=== PATIENT | male | born 1955 | race Caucasian/White ===

== ENCOUNTER → 2022-12-11 10:23 | Outpatient (CLI) | payer OTHER, SELFPAY ==
--- NOTE | 2022-12-11 10:25 | DI.CT.S_ITS ---
PROCEDURE: CT CHEST WO CON INDICATIONS: cough and 30+ pack year smoking TECHNIQUE: Noncontrast 5 mm thick sections acquired from the pulmonary apices to the posterior costophrenic angles. 1 mm lung window, 5 mm thick coronal and sagittal and 7 mm axial MIP reformats were then acquired. For radiation dose reduction, the following was used: automated exposure control, adjustment of mA and/or kV according to patient size. COMPARISON: None. FINDINGS: Image quality: Excellent. Lungs and pleura: Moderate centrilobular emphysema. No effusions. Mild bronchial thickening. No mucous impaction. A few calcified granuloma. Mediastinum: Heart size is normal. No pericardial effusion. No mediastinal adenopathy by size criteria. Thoracic aorta and central pulmonary arteries are normal in size. Esophagus is normal in caliber. No hiatal hernia. Moderate to marked coronary artery calcifications for age. Bones and chest wall: No suspicious bony lesions. No vertebral body compression fractures. No axillary or supraclavicular adenopathy by size criteria. Thyroid gland contains a coarse calcification . Abdomen: Visualized upper abdominal solid organs and bowel loops appear normal in the absence of contrast. IMPRESSION: Mild bronchial thickening, suggestive of infectious or inflammatory bronchitis. Moderate to marked coronary calcifications for age. Dictated by: Greg Galeana M.D. on 12/11/2022 at 14:11 Approved by: Greg Galeana M.D. on 12/11/2022 at 14:13
--- NOTE | 2022-12-11 10:25 | DI.ECHO.S_ITS ---
[place] +---------+ [facility] +---------+ : : [address] : : : : [id number] : : : : Phone: [phone] Echocardiogram Report + + :Name: GLORIA GOTTLIEB Study Date: 12/11/2022 Height: 66 in : :[facility] ReadingLocation: Weight: 183 lb : : Gender: Male BSA: 1.9 m2 : :: 1955 Age: 67 yrs BP: 172/77 mmHg: :Reason For Study: New Systolic Murmur : :Ordering Physician: DELTA, : :LAURA Performed By: Laura Black : :Referring: LAURA SORENSON : + + Interpretation Summary The ejection fraction is estimated to be 60-65%. Diastolic parameters suggest probable normal left ventricular diastolic function and normal filling pressures. The right ventricle is normal in size and function. There is moderate aortic stenosis. There is moderate aortic regurgitation. Pulmonary artery pressures cannot be estimated because of the lack of a measurable TR jet velocity. Procedure: A two-dimensional transthoracic echocardiogram with color flow and Doppler was performed. The study quality was technically adequate. There is no prior echocardiogram noted for this patient. The patient was in normal sinus rhythm during the exam. Left Ventricle: The left ventricle is normal in size. The ejection fraction is estimated to be 60-65%. Diastolic parameters suggest probable normal left ventricular diastolic function and normal filling pressures. Right Ventricle: The right ventricle is normal in size and function. Atria: The left atrial size is normal. Right atrial size is normal. There is no Doppler evidence for an interatrial shunt. Mitral Valve: The mitral valve leaflets appear borderline thickened, but open well. There is no mitral valve stenosis. There is trace mitral regurgitation. Aortic Valve: The aortic valve is not well visualized. The aortic valve is moderately calcified. There is moderate aortic stenosis. The peak aortic velocity is 3.22 m/sec. The aortic valve mean gradient is 20 mmHg. The dimensionless index is 0.48. There is moderate aortic regurgitation. Tricuspid Valve: The tricuspid valve is normal. There is no tricuspid stenosis. There is trace tricuspid regurgitation. Pulmonary artery pressures cannot be estimated because of the lack of a measurable TR jet velocity. Pulmonic Valve: The pulmonic valve leaflets are thin and pliable; valve motion is normal. There is no pulmonic valvular stenosis. There is no pulmonic valvular regurgitation. Great Vessels: The aortic root is normal size. The ascending aorta is normal in size. The pulmonary artery is normal size. The IVC is of normal diameter and collapses greater than 50% with a sniff. This suggests a low right atrial pressure of 3 mm Hg. Pericardium/ Pleura There is no pericardial effusion. There is no pleural effusion. MMode/2D Measurements & Calculations LVIDd: 3.2 cm LVOT diam: 2.1 cm LVIDs: 2.7 cm Ao root diam: 2.9 cm FS: 15.6 % asc Aorta Diam: 3.2 cm IVSd: 1.4 cm LVPWd: 1.2 cm LV morales. diameter/BSA (cm/m^2): 1.7 LV sys. diameter/BSA (cm/m^2): 1.4 LA A2 area: 15.8 cm2 RA long axis: 4.7 cm LA A4 area: 16.5 cm2 RA area: 13.9 cm2 LA length (vol): 5.0 cm RA vol: 35.2 ml LA vol: 44.7 ml RA : 18.3 ml/m2 LA vol index: 23.2 ml/m2 RVD1 (basal): 3.6 cm LVLs ap4: 6.4 cm LVLd ap2: 8.2 cm TAPSE_phl: 2.9 cm LVLs ap2: 6.6 cm Doppler Measurements & Calculations Ao V2 max: 311.7 cm/sec LVOT Max Randolph: 146.0 cm/sec Ao V2 mean: 204.3 cm/sec LV V1 max P.5 mmHg Ao max P.0 mmHg LV V1 VTI: 30.1 cm Ao mean P.3 mmHg JOSE ENRIQUE(I,D): 1.6 cm2 Ao V2 VTI: 63.4 cm JOSE ENRIQUE(V,D): 1.6 cm2 sev ratio: 0.47 JOSE ENRIQUE indexed to BSA (cm^2/m^2): 0.85 MV E max randolph: 90.7 cm/sec PA V2 max: 148.0 cm/sec MV A max randolph: 116.0 cm/sec PA V2 mean: 97.0 cm/sec MV E/A: 0.78 PA mean P.0 mmHg Med Peak E' Randolph: 6.1 cm/sec PA pr(Accel): 43.5 mmHg E/E' med: 14.9 Lat Peak E' Randolph: 7.5 cm/sec E/E' lat: 12.0 E/e' average: 13.5 MV dec time: 0.29 sec SV(LVOT): 104.1 ml AV P1/2t-pr_phl: 428.9 msec AV VR_phl: 0.47 JOSE ENRIQUE(VTI)/BSA_phl: 0.85 MV P1/2t-pr_phl: 86.0 msec Reading Physician:12:42 PM
[2022-12-11 12:19] LABS: Add Manual Diff / Slide Review NO; Basophils Absolute Auto 100 /uL (0-100); Basophils Percent Auto 0.9 % (0-2); Eosinophils Absolute Auto 300 /uL (0-450); Eosinophils Percent Auto 3.5 % (2-4); Hematocrit 41.8 % (41-53); Hemoglobin 15.1 g/dL (13.5-17.5); Lymphocytes Absolute Auto 3200 /uL (1100-4500); Lymphocytes Percent Auto 37.7 % (25-40); Mean Corpuscular HGB Conc 36.2 % (30-36); Mean Corpuscular Hemoglobin 32.8 PG (26-34); Mean Corpuscular Volume 90.7 fL (80-100); Monocytes Absolute Auto 800 /uL (0-900); Monocytes Percent Auto 9.2 % (3-14); Neutrophils Absolute Auto 4200 /uL (1500-7000); Neutrophils Percent Auto 48.7 % (50-75); Platelet Count 229 X10^3/uL (150-400); Red Blood Cell Count 4.61 X10^6/uL (4.5-5.9); Red Cell Distribution Width 13.5 % (11.6-14.8); White Blood Cell Count 8.6 X10^3/uL (4.5-11.0)
[2022-12-11 12:51] LABS: Alanine Aminotransferase 55 IU/L (<50); Albumin 4.4 g/dL (3.5-5.0); Albumin Globulin Ratio 1.1 (1.0-2.8); Alkaline Phosphatase 104 U/L (38-126); Aspartate Aminotransferase 53 IU/L (17-59); BUN Creatinine Ratio 9.1 (6-22); Bilirubin Total 1.3 mg/dL (0.2-1.3); Blood Urea Nitrogen 9 mg/dL (9-20); Calcium 9.3 mg/dL (8.4-10.2); Carbon Dioxide 23 mmol/L (22-32); Chloride 100 mmol/L (98-107); Cholesterol 165 mg/dL (140-199); Estimated Glomerular Filt Rate > 60 mL/min (>60); Globulin 4.1 g/dL (1.7-4.1); Glucose 136 mg/dL (80-110); HDL Cholesterol 35 mg/dL (40-60); HEMOLYSIS 21 (0-50); LDL Cholesterol Calculated 68 mg/dL (<100); Potassium 3.8 mmol/L (3.4-5.1); Sodium 135 mmol/L (137-145); Total Protein 8.5 g/dL (6.3-8.2); Triglycerides 308 mg/dL (35-150)
[2022-12-11 13:02] LABS: Prostate Specific Antigen Scrn 0.116 ng/mL (0.1-4.0)
[2022-12-11 13:08] LABS: Creatinine Urine Random 43.8 mg/dL
[2022-12-11 13:15] LABS: Microalbumi Creatinin Ratio Ur 61.6 ug/mg CR (<30); Microalbumin Urine Random 2.7 mg/dL (0-1.6)
[2022-12-11 13:16] LABS: TSH w/ Reflex to FT4 3.06 uIU/mL (0.47-4.68)
[2022-12-12 02:36] LABS: Labcorp Hemoglobin (Hb) A1c 6.6 % (4.8-5.6)
== END ==
PROVIDERS: PCP Family Medicine; Referring Provider Family Medicine; Visit Provider Family Medicine
DX: I35.2 Nonrheumatic aortic (valve) stenosis with insufficiency (principal); I25.10 Atherosclerotic heart disease of native coronary artery without angina pectoris; R01.1 Cardiac murmur, unspecified; I10 Essential (primary) hypertension; Z12.5 Encounter for screening for malignant neoplasm of prostate; E11.9 Type 2 diabetes mellitus without complications; E78.5 Hyperlipidemia, unspecified; G62.9 Polyneuropathy, unspecified; F17.200 Nicotine dependence, unspecified, uncomplicated; Z79.4 Long term (current) use of insulin
CPT/HCPCS: 36415; 71250; 80053; 80061; 82043; 82570; 83036; 84443; 85025; 93306; G0103

== ENCOUNTER → 2023-03-16 08:39 | Outpatient (CLI) | payer OTHER, SELFPAY ==
[2023-03-16 09:17] LABS: Add Manual Diff / Slide Review NO; Basophils Absolute Auto 100 /uL (0-100); Basophils Percent Auto 0.9 % (0-2); Eosinophils Absolute Auto 300 /uL (0-450); Eosinophils Percent Auto 3.4 % (2-4); Hematocrit 41.1 % (41-53); Hemoglobin 14.6 g/dL (13.5-17.5); Lymphocytes Absolute Auto 3400 /uL (1100-4500); Lymphocytes Percent Auto 40.4 % (25-40); Mean Corpuscular HGB Conc 35.6 % (30-36); Mean Corpuscular Hemoglobin 32.6 PG (26-34); Mean Corpuscular Volume 91.6 fL (80-100); Monocytes Absolute Auto 700 /uL (0-900); Monocytes Percent Auto 8.1 % (3-14); Neutrophils Absolute Auto 4000 /uL (1500-7000); Neutrophils Percent Auto 47.2 % (50-75); Platelet Count 217 X10^3/uL (150-400); Red Blood Cell Count 4.49 X10^6/uL (4.5-5.9); Red Cell Distribution Width 13.4 % (11.6-14.8); White Blood Cell Count 8.4 X10^3/uL (4.5-11.0)
[2023-03-16 09:35] LABS: Alanine Aminotransferase 69 IU/L (<50); Albumin 4.4 g/dL (3.5-5.0); Albumin Globulin Ratio 1.4 (1.0-2.8); Alkaline Phosphatase 75 U/L (38-126); Aspartate Aminotransferase 50 IU/L (17-59); BUN Creatinine Ratio 17.4 (6-22); Bilirubin Total 1.8 mg/dL (0.2-1.3); Blood Urea Nitrogen 21 mg/dL (9-20); Calcium 10.1 mg/dL (8.4-10.2); Carbon Dioxide 30 mmol/L (22-32); Chloride 100 mmol/L (98-107); Estimated Glomerular Filt Rate > 60 mL/min (>60); Globulin 3.2 g/dL (1.7-4.1); Glucose 324 mg/dL (80-110); HEMOLYSIS < 15 (0-50); Potassium 4.7 mmol/L (3.4-5.1); Sodium 137 mmol/L (137-145); Total Protein 7.6 g/dL (6.3-8.2)
[2023-03-16 09:39] LABS: Appearance Urine UA CLEAR; Bilirubin Urine UA NEGATIVE (NEGATIVE); Color Urine UA YELLOW; Glucose Urine UA 2+ g/dL (Negative); Ketones Urine UA NEGATIVE (NEGATIVE); Leukocyte Esterase Urine UA NEGATIVE (NEGATIVE); Nitrite Urine UA NEGATIVE (Negative); Occult Blood Urine UA NEGATIVE (Negative); Protein Urine UA NEGATIVE (Negative); Specific Gravity Urine UA 1.025 (1.000-1.035); Urobilinogen Urine UA 0.2 E.U./dL (0.2); pH Urine UA 5.5 (4.5-8.0)
[2023-03-16 10:09] LABS: Bacteria Urine None Seen; Culture Indicated Urine Cult Not Indicated; RBC Urine None Seen (0-5/HPF); Squamous Epithelial Cell Urine None Seen (0-5/HPF); WBC Urine None Seen (0-5/HPF)
[2023-03-16 16:31] LABS: Creatinine Urine Random 154.8 mg/dL; Protein (Total) Urine Random 12 mg/dL (0-12); Protein Creatinine Ratio Urine 0.07 GRAM/24H
[2023-03-17 15:47] LABS: Absolute CD 4 Helper 295 /uL (359-1519); Basophils (Absolute) 0.1 x10E3/uL (0.0-0.2); Eosinophils 3 % (Not Estab.); Eosinophils (Absolute) 0.3 x10E3/uL (0.0-0.4); Hemacrit 42.4 % (37.5-51.0); Hemoglobin 14.5 g/dL (13.0-17.7); Immature Granulocytes 1 % (Not Estab.); Immature Granulocytes (Abs) 0.1 x10E3/uL (0.0-0.1); Lymphocytes 41 % (Not Estab.); Lymphocytes (Absolute) 3.6 x10E3/uL (0.7-3.1); MCHC 32.1 pg (26.6-33.0); MCHC 34.2 g/dL (31.5-35.7); MCV 94 fL (79-97); Monocytes 9 % (Not Estab.); Monocytes (Absolute) 0.8 x10E3/uL (0.1-0.9); Neutrophils 45 % (Not Estab.); Percent CD 4 Pos Lymph 8.2 % (30.8-58.5); Platelets 220 x10E3/uL (150-450); Red Blood Cells 4.52 x10E6/uL (4.14-5.80); White Blood Cells 8.8 x10E3/uL (3.4-10.8)
[2023-03-23 01:06] LABS: HIV-1 RNA by PCR <40 copies/mL (.)
== END ==
PROVIDERS: PCP Family Medicine; Referring Provider Family Medicine Addiction Medicine; Visit Provider Family Medicine Addiction Medicine
DX: E11.29 Type 2 diabetes mellitus with other diabetic kidney complication (principal); B20 Human immunodeficiency virus [HIV] disease; R80.9 Proteinuria, unspecified; I10 Essential (primary) hypertension; E11.9 Type 2 diabetes mellitus without complications; Z79.4 Long term (current) use of insulin
CPT/HCPCS: 36415; 80053; 81001; 82570; 83036; 84156; 85025; 86361; 87536

== ENCOUNTER → 2023-05-05 09:20 | Outpatient (CLI) | payer OTHER, SELFPAY ==
--- NOTE | 2023-05-05 | DI.US.S_ITS ---
PROCEDURE: US THYROID INDICATIONS: Family history of other endocrine, nutritional and metabolic TECHNIQUE: Real-time scanning was performed of the thyroid gland, with image documentation. COMPARISON: None. FINDINGS: Right: Thyroid lobe measures 3.8 x 1.5 x 1.8 cm, and is homogeneous in echotexture. Left: Thyroid lobe measures 4.4 x 2.5 x 1.6 cm, and is homogenous in echotexture. Isthmus: 3.2 cm thick. Nodule number: 1 Location: Right mid Size: 1.0 x 1.2 x 0.8 cm. Composition: Solid Echogenicity: Isoechoic Shape: wider than tall. Margins: Smooth Echogenic foci: Non Total points: 3 ACR TI-RADS category: 3 Nodule number: 2 Location: Right mid Size: 1.0 x 0.7 x 0.7 cm. Composition: Solid Echogenicity: Hypoechoic Shape: wider than tall. Margins: Smooth Echogenic foci: None Total points: 4 ACR TI-RADS category: 4 Nodule number: 3 Location: Left mid Size: 0.7 x 0.8 x 0.5 cm. Composition: Cystic Echogenicity: Hypoechoic Shape: wider than tall. Margins: Smooth Echogenic foci: None Total points: 2 ACR TI-RADS category: 2 IMPRESSION: 1. There are small thyroid nodules. Nodule 2 is moderately suspicious and nodule 1 is mildly suspicious. Please see enclosed follow-up recommendation. ACR TI-RADS definitions and recommendations: TI-RADS 1 (benign): 0 points. FNA not needed. TI-RADS 2 (not suspicious): 2 points. FNA not needed. TI-RADS 3 (mildly suspicious): 3 points. * FNA if 2.5 cm or larger, follow up if 1.5 cm or larger (at 1, 3, and 5 years). TI-RADS 4 (moderately suspicious): 4-6 points. * FNA if 1.5 cm or larger, follow up if 1 cm or larger (at 1, 2, 3, and 5 years). TI-RADS 5 (highly suspicious): 7 points or more. * FNA if 1 cm or larger, follow up if 0.5 cm or larger (every year for 5 years). Dictated by: Santos Chacon M.D. on 05/05/2023 at 17:11 Approved by: Santos Chacon M.D. on 05/05/2023 at 18:09
== END ==
PROVIDERS: PCP Family Medicine; Referring Provider Family Medicine; Visit Provider Family Medicine
DX: E04.2 Nontoxic multinodular goiter (principal); Z83.49 Family history of other endocrine, nutritional and metabolic diseases; Z80.8 Family history of malignant neoplasm of other organs or systems
CPT/HCPCS: 76536

== ENCOUNTER → 2023-06-22 08:26 | Outpatient (CLI) | payer OTHER, SELFPAY ==
[2023-06-22 09:13] LABS: Hemoglobin A1C% w Est Avg Glu 10.1 % (4.0-6.0)
[2023-06-22 09:30] LABS: Alanine Aminotransferase 45 IU/L (<50); Albumin Globulin Ratio 1.3 (1.0-2.8); Alkaline Phosphatase 78 U/L (38-126); Aspartate Aminotransferase 36 IU/L (17-59); BUN Creatinine Ratio 8.9 (6-22); Bilirubin Total 1.4 mg/dL (0.2-1.3); Blood Urea Nitrogen 11 mg/dL (9-20); Calcium 9.5 mg/dL (8.4-10.2); Carbon Dioxide 27 mmol/L (22-32); Chloride 103 mmol/L (98-107); Estimated Glomerular Filt Rate > 60 mL/min (>60); Globulin 3.1 g/dL (1.7-4.1); Glucose 252 mg/dL (80-110); HEMOLYSIS < 15 (0-50); Potassium 4.2 mmol/L (3.4-5.1); Sodium 138 mmol/L (137-145); Total Protein 7.1 g/dL (6.3-8.2)
== END ==
LOC: LAB 08:28
PROVIDERS: PCP Family Medicine; Referring Provider Family Medicine; Visit Provider Family Medicine
DX: E11.9 Type 2 diabetes mellitus without complications (principal); E78.5 Hyperlipidemia, unspecified; Z79.4 Long term (current) use of insulin
CPT/HCPCS: 36415; 80053; 83036

== ENCOUNTER → 2023-09-16 10:31 | Outpatient (CLI) | payer OTHER, SELFPAY ==
[2023-09-16 11:49] LABS: Add Manual Diff / Slide Review NO; Basophils Absolute Auto 100 /uL (0-100); Basophils Percent Auto 0.6 % (0-2); Eosinophils Absolute Auto 200 /uL (0-450); Eosinophils Percent Auto 2.3 % (2-4); Hematocrit 39.1 % (41-53); Hemoglobin 13.7 g/dL (13.5-17.5); Lymphocytes Absolute Auto 3300 /uL (1100-4500); Lymphocytes Percent Auto 36.4 % (25-40); Mean Corpuscular HGB Conc 35.1 % (30-36); Mean Corpuscular Hemoglobin 31.8 PG (26-34); Mean Corpuscular Volume 90.7 fL (80-100); Monocytes Absolute Auto 800 /uL (0-900); Monocytes Percent Auto 8.9 % (3-14); Neutrophils Absolute Auto 4700 /uL (1500-7000); Neutrophils Percent Auto 51.8 % (50-75); Platelet Count 243 X10^3/uL (150-400); Red Blood Cell Count 4.31 X10^6/uL (4.5-5.9); Red Cell Distribution Width 14.1 % (11.6-14.8)
[2023-09-16 11:55] LABS: Appearance Urine UA CLEAR; Bilirubin Urine UA NEGATIVE (NEGATIVE); Color Urine UA YELLOW; Glucose Urine UA NEGATIVE (Negative); Ketones Urine UA NEGATIVE (NEGATIVE); Leukocyte Esterase Urine UA NEGATIVE (NEGATIVE); Nitrite Urine UA NEGATIVE (Negative); Occult Blood Urine UA NEGATIVE (Negative); Protein Urine UA NEGATIVE (Negative); Specific Gravity Urine UA 1.015 (1.000-1.035)
[2023-09-16 12:01] LABS: Hemoglobin A1C% w Est Avg Glu 6.1 % (4.0-6.0); Urine Volume 10mL (spun)
[2023-09-16 12:02] LABS: Bacteria Urine None Seen; Culture Indicated Urine Cult Not Indicated; RBC Urine None Seen (0-5/HPF); Squamous Epithelial Cell Urine None Seen (0-5/HPF); WBC Urine None Seen (0-5/HPF)
[2023-09-16 12:14] LABS: Alanine Aminotransferase 20 IU/L (<50); Albumin 4.6 g/dL (3.5-5.0); Albumin Globulin Ratio 1.6 (1.0-2.8); Alkaline Phosphatase 62 U/L (38-126); Aspartate Aminotransferase 25 IU/L (17-59); BUN Creatinine Ratio 13.2 (6-22); Bilirubin Total 1.7 mg/dL (0.2-1.3); Blood Urea Nitrogen 16 mg/dL (9-20); Calcium 9.6 mg/dL (8.4-10.2); Carbon Dioxide 28 mmol/L (22-32); Chloride 102 mmol/L (98-107); Cholesterol 124 mg/dL (140-199); Estimated Glomerular Filt Rate > 60 mL/min (>60); Globulin 2.9 g/dL (1.7-4.1); Glucose 97 mg/dL (80-110); HDL Cholesterol 41 mg/dL (40-60); HEMOLYSIS < 15 (0-50); LDL Cholesterol Calculated 55 mg/dL (<100); Sodium 137 mmol/L (137-145); Total Protein 7.5 g/dL (6.3-8.2); Triglycerides 139 mg/dL (35-150)
[2023-09-16 12:15] LABS: Potassium 4.3 mmol/L (3.4-5.1)
[2023-09-16 12:24] LABS: Vitamin D 25 Hydroxy (D3) 25.4 ng/mL (30.0-100.0)
[2023-09-16 12:25] LABS: Microalbumi Creatinin Ratio Ur 34.6 ug/mg CR (<30); Microalbumin Urine Random 2.6 mg/dL (0-1.6)
[2023-09-16 12:59] LABS: Vitamin B12 399 pg/mL (239-931)
[2023-09-19 00:01] LABS: Treponema pallidum Antibodies Non Reactive (Non Reactive)
[2023-09-22 16:57] LABS: HIV-1 RNA by PCR <20 copies/mL (.)
== END ==
PROVIDERS: PCP Family Medicine; Referring Provider Family Medicine Addiction Medicine; Visit Provider Family Medicine Addiction Medicine
DX: E11.29 Type 2 diabetes mellitus with other diabetic kidney complication (principal); B20 Human immunodeficiency virus [HIV] disease; M85.80 Other specified disorders of bone density and structure, unspecified site; E11.9 Type 2 diabetes mellitus without complications; Z79.4 Long term (current) use of insulin; I10 Essential (primary) hypertension; I35.1 Nonrheumatic aortic (valve) insufficiency; I35.0 Nonrheumatic aortic (valve) stenosis; E78.5 Hyperlipidemia, unspecified
CPT/HCPCS: 36415; 80053; 80061; 81001; 82043; 82306; 82570; 82607; 83036; 85025; 86360; 86780; 87536

== ENCOUNTER → 2023-09-22 09:43 | Outpatient (CLI) | payer OTHER, SELFPAY ==
--- NOTE | 2023-09-22 09:44 | DI.RAD.S_ITS ---
PROCEDURE: XR WRIST RT MIN 3V INDICATIONS: FOOSH injury a few years ago with continued wrist pain TECHNIQUE: 4 views of the wrist were acquired. COMPARISON: None. FINDINGS: Bones: No definitive fractures or dislocations. There is a small ossicle in the dorsal aspect of the wrist. No suspicious bony lesions. Degenerative joint disease, most pronounced and severe at the triscaphe joint. Soft tissues: No suspicious soft tissue calcifications. IMPRESSION: 1. No definitive acute bony abnormality. A small ossicle in the dorsal aspect of the wrist. Indeterminate. If clinical symptoms persist or clinical suspicion for pathology is high, advanced imaging such as CT or MRI is suggested for further evaluation. 2. Severe degenerative joint disease. Dictated by: Santos Chacon M.D. on 09/22/2023 at 10:21 Approved by: Santos Chacon M.D. on 09/22/2023 at 10:26
== END ==
PROVIDERS: PCP Family Medicine; Referring Provider Family Medicine; Visit Provider Family Medicine
DX: M19.031 Primary osteoarthritis, right wrist (principal); M25.531 Pain in right wrist
CPT/HCPCS: 73110

== ENCOUNTER → 2023-11-10 12:34 | Outpatient (CLI) | payer OTHER, SELFPAY ==
[2023-11-10 14:00] LABS: Alanine Aminotransferase 24 IU/L (<50); Albumin 4.6 g/dL (3.5-5.0); Albumin Globulin Ratio 1.4 (1.0-2.8); Alkaline Phosphatase 76 U/L (38-126); Aspartate Aminotransferase 32 IU/L (17-59); Bilirubin Total 1.6 mg/dL (0.2-1.3); Blood Urea Nitrogen 14 mg/dL (9-20); Calcium 9.5 mg/dL (8.4-10.2); Carbon Dioxide 21 mmol/L (22-32); Chloride 105 mmol/L (98-107); Estimated Glomerular Filt Rate > 60 mL/min (>60); Globulin 3.4 g/dL (1.7-4.1); Glucose 69 mg/dL (80-110); HEMOLYSIS < 15 (0-50); Potassium 4.5 mmol/L (3.4-5.1); Sodium 137 mmol/L (137-145)
[2023-11-10 14:28] LABS: Prostate Specific Antigen Scrn 0.243 ng/mL (0.1-4.0)
== END ==
PROVIDERS: PCP Family Medicine; Referring Provider Family Medicine; Visit Provider Family Medicine
DX: Z12.5 Encounter for screening for malignant neoplasm of prostate (principal); E11.9 Type 2 diabetes mellitus without complications; E78.2 Mixed hyperlipidemia; I10 Essential (primary) hypertension; Z79.4 Long term (current) use of insulin
CPT/HCPCS: 36415; 80053; 83036; G0103

== ENCOUNTER → 2023-12-07 07:22 | Outpatient (CLI) | payer OTHER, SELFPAY ==
--- NOTE | 2023-12-07 07:23 | DI.NM.S_ITS ---
PROCEDURE: NM JAKE PERF SPECT R&S PHARM Rest and pharmacological stress myocardial perfusion SPECT with gated imaging and ejection fraction RADIOPHARMACEUTICAL: 12.9 mCi Tc-99m tetrafosmin IV at rest and 26.6 mCi Tc-99m tetrafosmin IV at peak effect of pharmacological stress. Dpi-ovk-ownizyho was performed. INDICATIONS: CAD TECHNIQUE: Radiopharmaceutical was injected at peak stress test, and also at rest. SPECT images were obtained. SPECT myocardial perfusion images were displayed in short axis, horizontal long axis, and vertical long axis views. Gated images were reviewed using [employer] software. COMPARISON: None. CARDIAC STRESS: A pharmacologic stress test was performed under the supervision of an attending staff, using an infusion of regadenoson 0.4 mg IV. Hemodynamic data: There is normal blood pressure and heart rate response to pharmacologic stress. Symptoms: The patient experienced chest pressure throughout the test. Aminophylline: None required. EKG: No diagnostic changes of ischemia; no ectopy. FINDINGS: Raw data: There is good myocardial uptake of radiotracer. No significant motion artifacts. Oadj-zs-kvctp ratio is 0.39 (normal is less than 0.38 for tetrafosmin tracer). Left ventricle function: Gated images demonstrate normal left ventricular wall thickening. No segmental wall motion abnormalities. No transient ischemic dilation; TID is 1.04 (normal less than 1.3). Left ventricle resting end diastolic volume is 100 mL. Left ventricle stress ejection fraction is 75%; normal range is above 45%. Myocardial perfusion: There is a medium sized, mild intensity fixed inferior wall defect that resolves in prone imaging. No reversible perfusion defects. IMPRESSION: Low risk study. No evidence of pharmacologic induced ischemia. Normal LV size and function. Dictated by: Analisa Webber D.O. on 12/07/2023 at 16:12 Approved by: Analisa Webber D.O. on 12/07/2023 at 16:14
== END ==
PROVIDERS: PCP Family Medicine; Referring Provider Internal Medicine Cardiovascular Disease; Visit Provider Internal Medicine Cardiovascular Disease
DX: I25.10 Atherosclerotic heart disease of native coronary artery without angina pectoris (principal)
CPT/HCPCS: 78452; 93017; A9502; J2785

== ENCOUNTER → 2023-12-09 07:33 | Outpatient (CLI) | payer OTHER, SELFPAY ==
--- NOTE | 2023-12-09 07:34 | DI.CT.S_ITS ---
PROCEDURE: CT LUNG LOW DOSE SCREENING INDICATIONS: lung cancer screening TECHNIQUE: Noncontrast 2.0-2.5 mm thick sections acquired from the pulmonary apices to the posterior costophrenic angles. 7 mm thick axial MIP, and 5 mm coronal and sagittal reformats were then acquired. For radiation dose reduction, the following was used: automated exposure control, adjustment of mA and/or kV according to patient size. COMPARISON: None. FINDINGS: Image quality: Diagnostic. Lower Neck: No enlarged lymph nodes. Thyroid: 3 mm calcification left lobe of the thyroid. Axillae: No enlarged lymph nodes. Chest Wall: Unremarkable. Bones: There is fusion, likely congenital, at the T9-10 vertebrae anteriorly. Schmorl node seen along the inferior endplate of T11. Mild osteophyte formation. Lungs and Pleura: Moderate centrilobular emphysema present. There is appears stable compared to prior study. No pneumothorax or pleural effusions. No consolidation or suspicious nodules. Heart: Heart size is normal. No pericardial effusion. There is calcification of the coronary arteries. Calcifications seen in the annulus of the aortic valve. Thoracic Vessels: The aorta and pulmonary arteries demonstrate normal size. Mediastinum and Lianna: No enlarged lymph nodes. Esophagus: No wall thickening. No hiatal hernia. Upper Abdomen: Visualized upper abdomen solid organs and bowel loops appear normal. IMPRESSION: No suspicious nodules. COPD, moderate centrilobular emphysema. Coronary artery calcifications. LUNG-RADS 1; continue annual screening. Dictated by: Cheo Lewis M.D. on 12/09/2023 at 11:39 Approved by: Cheo Lewis M.D. on 12/09/2023 at 11:53
== END ==
PROVIDERS: PCP Family Medicine; Referring Provider Family Medicine; Visit Provider Family Medicine
DX: Z87.891 Personal history of nicotine dependence (principal); Z12.2 Encounter for screening for malignant neoplasm of respiratory organs; J43.2 Centrilobular emphysema; I25.10 Atherosclerotic heart disease of native coronary artery without angina pectoris
CPT/HCPCS: 71271

== ENCOUNTER → 2023-12-24 08:45 | Outpatient (CLI) | payer OTHER, SELFPAY ==
[2023-12-24 10:07] LABS: Cholesterol 108 mg/dL (140-199); HDL Cholesterol 38 mg/dL (40-60); LDL Cholesterol Calculated 43 mg/dL (<100); Triglycerides 133 mg/dL (35-150)
== END ==
PROVIDERS: PCP Family Medicine; Referring Provider Nurse Practitioner Acute Care; Visit Provider Nurse Practitioner Acute Care
DX: E78.5 Hyperlipidemia, unspecified (principal)
CPT/HCPCS: 36415; 80061

== ENCOUNTER → 2024-01-05 08:01 | Outpatient (CLI) | payer OTHER, SELFPAY ==
--- NOTE | 2024-01-05 | DI.US.S_ITS ---
PROCEDURE: US ABD AORTA ANEURYSM SCREEN INDICATIONS: Personal history of nicotine dependence TECHNIQUE: Real-time scanning was performed of the aorta and proximal common iliac arteries, with image documentation. COMPARISON: None. FINDINGS: Aorta: Abdominal aorta is normal in caliber throughout its length. Iliacs: Proximal common iliac arteries are normal in caliber. IMPRESSION: No evidence of AAA Dictated by: Marcelino Hurtado M.D. on 01/05/2024 at 12:35 Approved by: Marcelino Hurtado M.D. on 01/05/2024 at 12:36
== END ==
LOC: US 08:01
PROVIDERS: PCP Family Medicine; Referring Provider Nurse Practitioner Acute Care; Visit Provider Nurse Practitioner Acute Care
DX: Z87.891 Personal history of nicotine dependence (principal); Z13.6 Encounter for screening for cardiovascular disorders
CPT/HCPCS: 76706

== ENCOUNTER → 2024-01-20 13:18 | Outpatient (CLI) | payer OTHER, SELFPAY ==
--- NOTE | 2024-01-20 13:19 | DI.ECHO.S_ITS ---
[place] +---------+ [facility] : : [address] : : [address] : : [id number] : : Phone: [phone] Echocardiogram Report + + :Name: GLORIA GOTTLIEB Study Date: 01/20/2024 Height: 66 in : :[facility] ReadingLocation: Weight: 168 lb : : Gender: Male BSA: 1.9 m2 : :: 1955 Age: 68 yrs BP: 142/75 mmHg: :Reason For Study: AORTIC VALVE STENOSIS : :Ordering Physician: RAJANI, : :CHILO Performed By: Manjula Francois : :Referring: CHILO GERARD : + + Interpretation Summary The ejection fraction is estimated to be 60-65%. Diastolic parameters suggest probable normal left ventricular diastolic function and normal filling pressures. The right ventricle is normal in size and function. There is moderate aortic stenosis. There is moderate aortic regurgitation. Pulmonary artery pressures cannot be estimated because of the lack of a measurable TR jet velocity but the IVC suggests a CVP of around 3 mmHg. Procedure: A two-dimensional transthoracic echocardiogram with color flow and Doppler was performed. The study quality was technically adequate. Comparison is made with the echocardiogram of 12/11/2022. The patient was in sinus rhythm with heart rates between 72-82 bpm during the exam. Left Ventricle: The left ventricle is normal in size. Left ventricular wall thickness is at the upper limits of normal. The ejection fraction is estimated to be 60-65%. Diastolic parameters suggest probable normal left ventricular diastolic function and normal filling pressures. Right Ventricle: The right ventricle is normal in size and function. Atria: The left atrial size is normal. Right atrial size is normal. There is no Doppler evidence for an interatrial shunt. Mitral Valve: The mitral valve is normal in structure and function. There is no mitral regurgitation noted. Aortic Valve: The aortic valve is moderately calcified. The aortic valve is trileaflet. There is moderately reduced leaflet mobility. The peak aortic velocity is 3.5 m/sec. The aortic valve mean gradient is 31 mmHg. The dimensionless index is 0.33. There is moderate aortic stenosis. There is moderate aortic regurgitation. Tricuspid Valve: The tricuspid valve is normal in structure and function. No tricuspid regurgitation. Pulmonary artery pressures cannot be estimated because of the lack of a measurable TR jet velocity but the IVC suggests a CVP of around 3 mmHg. Pulmonic Valve: The pulmonic valve is not well seen, but is grossly normal. There is mild pulmonic regurgitation. Great Vessels: The aortic root is normal size. The dimensions of the ascending aorta are normal. The IVC is of normal diameter and collapses greater than 50% with a sniff. This suggests a low right atrial pressure of 3 mm Hg. Pericardium/ Pleura There is no pericardial effusion. There is no pleural effusion. MMode/2D Measurements & Calculations LVIDd: 4.2 cm LVOT diam: 2.0 cm LVIDs: 2.8 cm Ao root diam: 3.0 cm FS: 33.7 % asc Aorta Diam: 3.1 cm IVSd: 0.90 cm LVPWd: 1.1 cm LV morales. diameter/BSA (cm/m^2): 2.3 LV sys. diameter/BSA (cm/m^2): 1.5 LA A2 area: 20.7 cm2 RA long axis: 4.4 cm LA A4 area: 17.1 cm2 RA area: 13.4 cm2 LA length (vol): 5.4 cm RA vol: 34.4 ml LA vol: 55.9 ml RA : 18.5 ml/m2 LA vol index: 30.1 ml/m2 IVC diam: 1.3 cm RVD1 (basal): 3.5 cm RVD2 (mid): 3.0 cm TAPSE: 2.0 cm Doppler Measurements & Calculations Ao V2 max: 339.9 cm/sec LVOT Max Randolph: 109.1 cm/sec Ao V2 mean: 247.1 cm/sec LV V1 max P.8 mmHg Ao max P.3 mmHg LV V1 VTI: 24.9 cm Ao mean P.1 mmHg JOSE ENRIQUE(I,D): 1.0 cm2 Ao V2 VTI: 75.8 cm JOSE ENRIQUE(V,D): 0.99 cm2 sev ratio: 0.33 JOSE ENRIQUE indexed to BSA (cm^2/m^2): 0.55 MV E max randolph: 79.8 cm/sec PA V2 max: 102.5 cm/sec MV A max randolph: 107.4 cm/sec PA V2 mean: 70.7 cm/sec MV E/A: 0.74 PA mean P.2 mmHg Med Peak E' Randolph: 6.5 cm/sec PA pr(Accel): 44.7 mmHg E/E' med: 12.2 Lat Peak E' Randolph: 7.5 cm/sec E/E' lat: 10.7 E/e' average: 11.4 MV dec time: 0.26 sec MVA(VTI): 1.7 cm2 MV V2 mean: 83.7 cm/sec SV(LVOT): 77.0 ml MV mean P.3 mmHg MV V2 VTI: 45.6 cm Reading Physician:03:49 PM
== END ==
LOC: ECHO 13:19
PROVIDERS: PCP Family Medicine; Referring Provider Nurse Practitioner Acute Care; Visit Provider Nurse Practitioner Acute Care
DX: I35.0 Nonrheumatic aortic (valve) stenosis (principal)
CPT/HCPCS: 93306

== ENCOUNTER → 2024-02-08 08:31 | Outpatient (CLI) | payer OTHER, SELFPAY ==
[2024-02-08 10:28] LABS: Alanine Aminotransferase 21 IU/L (<50); Albumin 4.5 g/dL (3.5-5.0); Albumin Globulin Ratio 1.5 (1.0-2.8); Alkaline Phosphatase 84 U/L (38-126); Aspartate Aminotransferase 37 IU/L (17-59); Bilirubin Total 1.6 mg/dL (0.2-1.3); Blood Urea Nitrogen 16 mg/dL (9-20); Calcium 9.7 mg/dL (8.4-10.2); Carbon Dioxide 20 mmol/L (22-32); Chloride 100 mmol/L (98-107); Estimated Glomerular Filt Rate 58 mL/min (>60); Glucose 89 mg/dL (80-110); HEMOLYSIS < 15 (0-50); Potassium 4.1 mmol/L (3.4-5.1); Sodium 134 mmol/L (137-145); Total Protein 7.5 g/dL (6.3-8.2)
[2024-02-08 10:34] LABS: Microalbumin Urine Random 2.8 mg/dL (0-1.6)
== END ==
PROVIDERS: PCP Family Medicine; Referring Provider Family Medicine; Visit Provider Family Medicine
DX: E11.9 Type 2 diabetes mellitus without complications (principal); I10 Essential (primary) hypertension; Z79.4 Long term (current) use of insulin; E78.5 Hyperlipidemia, unspecified; J45.909 Unspecified asthma, uncomplicated; G62.9 Polyneuropathy, unspecified; R68.82 Decreased libido
CPT/HCPCS: 36415; 80053; 82043; 82570; 83036; 84402; 84403

== ENCOUNTER → 2024-02-12 09:01 | Outpatient (CLI) | payer OTHER, SELFPAY ==
[2024-02-12 10:52] LABS: Add Manual Diff / Slide Review NO; Basophils Absolute Auto 100 /uL (0-100); Basophils Percent Auto 0.9 % (0-2); Eosinophils Absolute Auto 200 /uL (0-450); Eosinophils Percent Auto 1.9 % (2-4); Hematocrit 38.4 % (41-53); Hemoglobin 13.4 g/dL (13.5-17.5); Lymphocytes Absolute Auto 3100 /uL (1100-4500); Lymphocytes Percent Auto 36.8 % (25-40); Mean Corpuscular HGB Conc 34.8 % (30-36); Mean Corpuscular Hemoglobin 32.3 PG (26-34); Mean Corpuscular Volume 92.8 fL (80-100); Monocytes Absolute Auto 700 /uL (0-900); Monocytes Percent Auto 7.7 % (3-14); Neutrophils Absolute Auto 4400 /uL (1500-7000); Neutrophils Percent Auto 52.7 % (50-75); Platelet Count 274 X10^3/uL (150-400); Red Blood Cell Count 4.14 X10^6/uL (4.5-5.9); Red Cell Distribution Width 14.2 % (11.6-14.8); White Blood Cell Count 8.4 X10^3/uL (4.5-11.0)
[2024-02-12 11:21] LABS: Estimated Glomerular Filt Rate > 60 mL/min (>60)
[2024-02-12 12:12] LABS: HIV 1 & 2 Ab/Ag 4th Gen Combo REACTIVE (NEGATIVE); Hep C Virus Ab w/Reflex Quant NEGATIVE s/c (NEGATIVE)
[2024-02-12 12:29] LABS: Urine N gonorrhoeae NOT DETECTED
[2024-02-12 12:30] LABS: Urine Chlamydia NOT DETECTED
[2024-02-18 12:11] LABS: Percent Free Testosterone 1.12 % (1.50-4.20); Testosterone Free 5.39 ng/dL (5.00-21.00); Testosterone Total 480.9 ng/dL (264.0-916.0)
[2024-02-19 20:37] LABS: HIV 1 RNA Reactive (Non Reactive); HIV 2 RNA Non Reactive (Non Reactive)
== END ==
PROVIDERS: PCP Family Medicine; Referring Provider Family Medicine Addiction Medicine; Visit Provider Family Medicine Addiction Medicine
DX: E11.29 Type 2 diabetes mellitus with other diabetic kidney complication (principal); B20 Human immunodeficiency virus [HIV] disease; Z11.3 Encounter for screening for infections with a predominantly sexual mode of transmission
CPT/HCPCS: 36415; 82565; 83036; 84402; 84403; 85025; 86803; 87389; 87491; 87535; 87538; 87591

== ENCOUNTER → 2024-02-25 08:52 | Outpatient (CLI) | payer OTHER, SELFPAY ==
[2024-02-26 16:08] LABS: Absolute CD 4 Helper 224 /uL (359-1519); Basophils (Absolute) 0.1 x10E3/uL (0.0-0.2); Eosinophils 2 % (Not Estab.); Eosinophils (Absolute) 0.1 x10E3/uL (0.0-0.4); Hemacrit 34.3 % (37.5-51.0); Hemoglobin 11.9 g/dL (13.0-17.7); Immature Granulocytes 0 % (Not Estab.); Lymphocytes 40 % (Not Estab.); Lymphocytes (Absolute) 2.6 x10E3/uL (0.7-3.1); MCHC 32.5 pg (26.6-33.0); MCHC 34.7 g/dL (31.5-35.7); MCV 94 fL (79-97); Monocytes 7 % (Not Estab.); Monocytes (Absolute) 0.5 x10E3/uL (0.1-0.9); Neutrophils 50 % (Not Estab.); Neutrophils (Absolute) 3.2 x10E3/uL (1.4-7.0); Percent CD 4 Pos Lymph 8.6 % (30.8-58.5); Platelets 212 x10E3/uL (150-450); RDW 13.4 % (11.6-15.4); Red Blood Cells 3.66 x10E6/uL (4.14-5.80); White Blood Cells 6.5 x10E3/uL (3.4-10.8)
== END ==
PROVIDERS: PCP Family Medicine; Referring Provider Family Medicine; Visit Provider Family Medicine
DX: B20 Human immunodeficiency virus [HIV] disease (principal)
CPT/HCPCS: 86361; 86780

== ENCOUNTER → 2024-03-10 10:05 | Outpatient (CLI) | payer OTHER, SELFPAY ==
[2024-03-11 17:09] LABS: Absolute CD 4 Helper 267 /uL (359-1519); Basophils (Absolute) 0.1 x10E3/uL (0.0-0.2); Eosinophils 2 % (Not Estab.); Eosinophils (Absolute) 0.2 x10E3/uL (0.0-0.4); Hemacrit 36.2 % (37.5-51.0); Hemoglobin 12.3 g/dL (13.0-17.7); Immature Granulocytes 0 % (Not Estab.); Lymphocytes 34 % (Not Estab.); Lymphocytes (Absolute) 2.7 x10E3/uL (0.7-3.1); MCHC 32.5 pg (26.6-33.0); MCV 96 fL (79-97); Monocytes 8 % (Not Estab.); Monocytes (Absolute) 0.7 x10E3/uL (0.1-0.9); Neutrophils 55 % (Not Estab.); Neutrophils (Absolute) 4.4 x10E3/uL (1.4-7.0); Percent CD 4 Pos Lymph 9.9 % (30.8-58.5); Platelets 262 x10E3/uL (150-450); RDW 13.1 % (11.6-15.4); Red Blood Cells 3.79 x10E6/uL (4.14-5.80); White Blood Cells 7.9 x10E3/uL (3.4-10.8)
== END ==
LOC: LAB 10:08
PROVIDERS: PCP Family Medicine; Referring Provider Family Medicine Addiction Medicine; Visit Provider Family Medicine Addiction Medicine
DX: B20 Human immunodeficiency virus [HIV] disease (principal)
CPT/HCPCS: 36415; 86361; 87536

== ENCOUNTER → 2024-05-24 08:26 | Outpatient (CLI) | payer OTHER, SELFPAY ==
[2024-05-24 09:30] LABS: Alanine Aminotransferase 17 IU/L (<50); Albumin 4.4 g/dL (3.5-5.0); Albumin Globulin Ratio 1.6 (1.0-2.8); Alkaline Phosphatase 74 U/L (38-126); Aspartate Aminotransferase 24 IU/L (17-59); Bilirubin Total 1.3 mg/dL (0.2-1.3); Blood Urea Nitrogen 8 mg/dL (9-20); Calcium 9.8 mg/dL (8.4-10.2); Carbon Dioxide 23 mmol/L (22-32); Chloride 107 mmol/L (98-107); Estimated Glomerular Filt Rate > 60 mL/min (>60); Globulin 2.7 g/dL (1.7-4.1); Glucose 98 mg/dL (80-110); HEMOLYSIS < 15 (0-50); Potassium 4.3 mmol/L (3.4-5.1); Sodium 138 mmol/L (137-145); Total Protein 7.1 g/dL (6.3-8.2)
[2024-05-24 09:35] LABS: Hemoglobin A1C% w Est Avg Glu 4.9 % (4.0-6.0)
== END ==
PROVIDERS: PCP Family Medicine; Referring Provider Family Medicine; Visit Provider Family Medicine
DX: E11.9 Type 2 diabetes mellitus without complications (principal); N52.9 Male erectile dysfunction, unspecified; B20 Human immunodeficiency virus [HIV] disease; E78.5 Hyperlipidemia, unspecified; Z79.4 Long term (current) use of insulin
CPT/HCPCS: 36415; 80053; 83036

== ENCOUNTER → 2024-08-16 12:06 | Outpatient (CLI) | payer OTHER, SELFPAY ==
[2024-08-16 13:26] LABS: Add Manual Diff / Slide Review NO; Basophils Absolute Auto 0 /uL (0-100); Basophils Percent Auto 0.7 % (0-2); Eosinophils Absolute Auto 100 /uL (0-450); Eosinophils Percent Auto 2.5 % (2-4); Hematocrit 32.2 % (41-53); Hemoglobin 11.1 g/dL (13.5-17.5); Lymphocytes Absolute Auto 2100 /uL (1100-4500); Lymphocytes Percent Auto 34.4 % (25-40); Mean Corpuscular HGB Conc 34.5 % (30-36); Mean Corpuscular Hemoglobin 31.8 PG (26-34); Mean Corpuscular Volume 92.2 fL (80-100); Monocytes Absolute Auto 300 /uL (0-900); Monocytes Percent Auto 5.5 % (3-14); Neutrophils Absolute Auto 3400 /uL (1500-7000); Neutrophils Percent Auto 56.9 % (50-75); Platelet Count 210 X10^3/uL (150-400); Red Blood Cell Count 3.49 X10^6/uL (4.5-5.9); Red Cell Distribution Width 14.2 % (11.6-14.8)
[2024-08-16 13:56] LABS: Alanine Aminotransferase 17 IU/L (<50); Albumin 4.3 g/dL (3.5-5.0); Albumin Globulin Ratio 1.4 (1.0-2.8); Alkaline Phosphatase 89 U/L (38-126); Aspartate Aminotransferase 23 IU/L (17-59); BUN Creatinine Ratio 10.6 (6-22); Bilirubin Total 1.2 mg/dL (0.2-1.3); Blood Urea Nitrogen 12 mg/dL (9-20); Carbon Dioxide 18 mmol/L (22-32); Chloride 108 mmol/L (98-107); Estimated Glomerular Filt Rate > 60 mL/min (>60); Glucose 171 mg/dL (80-110); HEMOLYSIS < 15 (0-50); Hemoglobin A1C% w Est Avg Glu 4.5 % (4.0-6.0); Potassium 3.8 mmol/L (3.4-5.1); Sodium 138 mmol/L (137-145); Total Protein 7.3 g/dL (6.3-8.2)
[2024-08-16 14:29] LABS: TSH w/ Reflex to FT4 0.85 uIU/mL (0.47-4.68)
== END ==
PROVIDERS: PCP Family Medicine; Referring Provider Family Medicine; Visit Provider Family Medicine
DX: I10 Essential (primary) hypertension (principal); E11.9 Type 2 diabetes mellitus without complications; E78.5 Hyperlipidemia, unspecified
CPT/HCPCS: 36415; 80053; 83036; 84443; 85025

== ENCOUNTER → 2024-11-07 10:24 | Outpatient (CLI) | payer OTHER, SELFPAY ==
[2024-11-07 11:01] LABS: Add Manual Diff / Slide Review NO; Basophils Absolute Auto 100 /uL (0-100); Eosinophils Absolute Auto 200 /uL (0-450); Eosinophils Percent Auto 2.5 % (2-4); Hematocrit 39.9 % (41-53); Hemoglobin 13.9 g/dL (13.5-17.5); Lymphocytes Absolute Auto 3400 /uL (1100-4500); Lymphocytes Percent Auto 41.8 % (25-40); Mean Corpuscular HGB Conc 34.9 % (30-36); Mean Corpuscular Hemoglobin 32.7 PG (26-34); Mean Corpuscular Volume 93.5 fL (80-100); Monocytes Absolute Auto 600 /uL (0-900); Neutrophils Absolute Auto 3900 /uL (1500-7000); Neutrophils Percent Auto 47.7 % (50-75); Platelet Count 248 X10^3/uL (150-400); Red Blood Cell Count 4.27 X10^6/uL (4.5-5.9); Red Cell Distribution Width 14.2 % (11.6-14.8); White Blood Cell Count 8.1 X10^3/uL (4.5-11.0)
[2024-11-07 11:15] LABS: Hemoglobin A1C% w Est Avg Glu 4.7 % (4.0-6.0)
[2024-11-07 11:32] LABS: Estimated Glomerular Filt Rate > 60 mL/min (>60)
[2024-11-07 11:49] LABS: Alanine Aminotransferase 22 IU/L (<50); Albumin 4.9 g/dL (3.5-5.0); Albumin Globulin Ratio 1.4 (1.0-2.8); Alkaline Phosphatase 87 U/L (38-126); Aspartate Aminotransferase 30 IU/L (17-59); BUN Creatinine Ratio 10.3 (6-22); Bilirubin Total 1.5 mg/dL (0.2-1.3); Blood Urea Nitrogen 12 mg/dL (9-20); Calcium 9.4 mg/dL (8.4-10.2); Carbon Dioxide 22 mmol/L (22-32); Chloride 105 mmol/L (98-107); Cholesterol 133 mg/dL (140-199); Estimated Glomerular Filt Rate > 60 mL/min (>60); Globulin 3.5 g/dL (1.7-4.1); Glucose 117 mg/dL (70-99); HDL Cholesterol 50 mg/dL (40-60); HEMOLYSIS < 15 (0-50); LDL Cholesterol Calculated 50 mg/dL (<100); Potassium 4.5 mmol/L (3.4-5.1); Sodium 137 mmol/L (137-145); Total Protein 8.4 g/dL (6.3-8.2); Triglycerides 165 mg/dL (35-150)
[2024-11-07 12:18] LABS: Prostate Specific Antigen Scrn 0.254 ng/mL (0.1-4.0)
[2024-11-07 14:33] LABS: Creatinine Urine Random 83.69 mg/dL
[2024-11-07 14:39] LABS: Microalbumin Urine Random 2.4 mg/dL (0-1.6)
== END ==
PROVIDERS: PCP Family Medicine; Referring Provider Family Medicine Addiction Medicine; Visit Provider Family Medicine Addiction Medicine
DX: B20 Human immunodeficiency virus [HIV] disease (principal); E11.9 Type 2 diabetes mellitus without complications; Z12.5 Encounter for screening for malignant neoplasm of prostate; Z79.4 Long term (current) use of insulin; I10 Essential (primary) hypertension; E78.5 Hyperlipidemia, unspecified
CPT/HCPCS: 36415; 80053; 80061; 82043; 82565; 82570; 83036; 85025; 87536; G0103

== ENCOUNTER → 2024-11-11 09:37 | Outpatient (CLI) | payer OTHER, SELFPAY ==
--- NOTE | 2024-11-11 09:38 | DI.RAD.S_ITS ---
PROCEDURE: XR KNEE LT 3V INDICATIONS: left knee pain TECHNIQUE: 3 views of the knee were acquired. COMPARISON: None. FINDINGS: Bones: No fractures or dislocations. No suspicious bony lesions. Soft tissues: No joint effusion. No suspicious soft tissue calcifications. There is mild to moderate degenerative disease in the patellofemoral compartment. No significant joint effusion seen. There is moderate osteopenia. IMPRESSION: Degenerative changes, no focal osseous lesion seen. Dictated by: Dg Reyes M.D. on 11/12/2024 at 18:23 Approved by: Dg Reyes M.D. on 11/12/2024 at 18:24
== END ==
PROVIDERS: PCP Family Medicine; Referring Provider Family Medicine; Visit Provider Family Medicine
DX: M25.562 Pain in left knee (principal)
CPT/HCPCS: 73562

== ENCOUNTER 2024-11-21 08:44 | Day surgery (SDC) | payer OTHER, SELFPAY ==
[2024-11-21 09:51] VITALS: BMI 22.6
--- NOTE | 2024-11-21 09:58 | PM.HP.IH.1 ---
History of Present Illness History of Present Illness Date Patient Seen: 11/21/24 Chief complaint: SDC Narrative: History of colon polyps [facility] Medical History (Updated 08/18/24 @ 09:30 by Shaq Bliss MD) Aortic regurgitation Aortic stenosis Hypertension Hyperlipidemia Vision disorder Chronic cough Asthma Allergies Carpal tunnel syndrome (~1978) Mumps Measles HIV (human immunodeficiency virus infection) (~1988) Hepatitis A (~1978) Chicken pox Tinnitus (~1999) Ruptured tympanic membrane (~1973) Cataracts, bilateral Colon polyps Surgical History Anesthesia History of dental surgery (~2020) Anal fissure (~1973) Family History Father Diabetes mellitus Hyperlipidemia Mother History of heart disease Stroke Thyroid disease Hypertension Grandfather History of heart disease Social History marital status: household members: none Smoking Status: Former smoker Tobacco: How many years used: 30 alcohol intake: current caffeine: Yes Type(s) of exercise: walking Meds Home Medications and Allergies Home Medications ?Medication ?Instructions ?Recorded ?Confirmed ?Type bictegravir 50 mg-emtricitabine 1 tab PO DAILY 10/03/22 11/21/24 History 200 mg-tenofovir alafenam 25 mg tablet (Biktarvy) lancets 33 gauge one tough Delica #100 ea 10/03/22 11/11/24 Rx blood sugar diagnostic (OneTouch #200 strips 12/28/23 11/11/24 Rx Verio test strips) alprostadil 20 mcg intracavernosal 20 mcg intra-cavernosal 3XW #1 ea 01/06/24 11/21/24 Rx kit (Edex) BD insulin syringe ultrs fine 0.5 #200 ea 02/16/24 11/11/24 Rx ml 31 gauge x 16 ketoconazole 2 % shampoo 1 applic topical 3XW #120 mL 03/07/24 11/21/24 Rx TADALAFIL 20MG/ OXYTOCIN 10 IU 1 ea PO DAILY PRN erectile 05/30/24 11/21/24 Rx dysfunction #30 tabs albuterol sulfate 90 mcg/actuation 1 - 2 puff inhalation Q4-6H PRN 07/06/24 11/21/24 Rx aerosol inhaler for wheezing #6.7 grams lisinopril 10 mg tablet 20 mg (2 x 10 mg) PO DAILY #180 08/18/24 11/21/24 Rx tabs semaglutide 0.25 mg or 0.5 mg (2 0.5 mg (0.736 mL) SUBCUT QWEEK #3 08/18/24 11/21/24 Rx mg/3 mL) subcutaneous pen injector mL (Ozempic) tadalafil 20 mg tablet 20 mg PO DAILY PRN sexual activity 09/13/24 11/21/24 Rx #30 tabs atorvastatin 40 mg tablet 40 mg PO DAILY #90 tabs 09/23/24 11/21/24 Rx loratadine 10 mg tablet 10 mg PO DAILY #90 tabs 09/26/24 11/21/24 Rx omeprazole magnesium 20 mg 20 mg PO DAILY #90 tabs 09/26/24 11/21/24 Rx tablet,delayed release (Prilosec OTC) varenicline tartrate 0.5 mg (11)-1 See Rx Instructions PO PER PKG DIR 11/11/24 11/21/24 Rx mg (42) tablets in a dose pack #53 ea (Chantix Starting Month Box) Allergies Allergy/AdvReac Type Severity Reaction Status Date / Time abacavir Allergy Severe ITCHING Verified 11/21/24 09:44 Sulfa (Sulfonamide Allergy Severe ITCHING Verified 11/21/24 09:44 Antibiotics) latex Allergy Rash Verified 11/21/24 09:44 Exam Narrative Exam Narrative: Oropharynx free of lesions Chest clear to auscultation percussion Cardiac exam reveals no S3 or murmur Assessment & Plan Assessment & Plan narrative: History of colon polyps need for follow-up colonoscopy. Risks, benefits, alternatives have been explained. Time-Based Coding :: [TOTAL MINUTES] spent with patient and on the chart (including review of chart, obtaining history, exam, reviewing outside data, placing orders, documenting exam and treatment plan, and counseling patient) on [DATE]. PROFEE Hay Farmer Document charge(s): No
--- NOTE | 2024-11-21 09:59 | PM.OP.COLON ---
Operative Date/Time/Diagnoses Date of procedure: 11/21/24 Time of procedure: 10:56 Pre-op diagnosis: See indication and findings Post-op diagnosis: same Procedure & Clinicians Study performed: Colonoscopy Same procedure(s) as scheduled: Yes Indications: History of colon polyps Surgeon: Tracy John Anesthesia Type: Other Procedure Notes Procedure in detail: After informed consent was obtained the patient was placed in left lateral decubitus position. The video colonoscope was introduced the rectum slowly advanced cecum. Preparation was good. On slow withdrawal mucosa was carefully examined. The scope was removed. The patient tolerated procedure well. Blood loss none Complications none Sedation mac Findings 1, 8 mm polyp in the cecum Jumbo biopsied x3 and removed completely 2. 4 mm polyp in the splenic flexure Jumbo biopsy removed completely 3. Extensive left and sigmoid diverticulosis Four. Otherwise negative colonoscopy to cecum Patient should plan on having colonoscopy again in 5 years
[2024-11-21 10:12] VITALS: BP 159/66; PULSE 65; RESP 14; TEMP 36.6; O2SAT 99
[2024-11-21] MEDS: LACTATED RINGERS 1,000 ML 42 ML IV (10:15)
--- NOTE | 2024-11-21 10:53 | PATH_ITS ---
[facility] Accession Number: [id number] No. of containers..02 Tissue . 01 Material submitted: . PART A: colon - CECAL POLYP PART B: colon - SPLENIC FLEXURE POLYP . 01 Diagnosis: A. CECUM: Tubular adenoma. . B. SPLENIC FLEXURE: Tubular adenoma. MRV 11/28/2024 1623 Local . 01 Electronically signed: . Sandy Will DO, Pathologist NPI- [id number] . 01 Gross description: . Part A: CECAL POLYP: Received in formalin are 3 fragment(s) of elizabeth, soft tissue measuring 0.1 x 0.1 x 0.1 cm to 0.5 x 0.3 x 0.2 cm submitted entirely in 1 cassette(s) Part B: SPLENIC FLEXURE POLYP: Received in formalin is 1 fragment(s) of elizabeth, soft tissue measuring 0.5 x 0.4 x 0.3 cm submitted entirely in 1 cassette(s) /REENA 11/25/2024 1818 Local . 01 Pathologist provided ICD-10: Z12.11 . 01 CPT . 897073, [id number] Specimen Comment: A courtesy copy of this report has been sent to [phone] Performed at: [address] [facility] [address], [place], [place] [id number] MD Cesario Boyd MD Phone: [phone]
[2024-11-21 10:58] VITALS: BP 87/44; PULSE 60; RESP 16; TEMP 36.2; O2SAT 96
[2024-11-21 11:03] VITALS: BP 97/52; PULSE 63; RESP 18; O2SAT 96
[2024-11-21 11:09] VITALS: BP 116/58; PULSE 61; RESP 16; O2SAT 98
[2024-11-21 11:13] VITALS: BP 129/53; PULSE 71; RESP 16; TEMP 36.2; O2SAT 98
== END 2024-11-21 11:30 | disposition home or self-care (01) ==
PROVIDERS: PCP Family Medicine; Referring Provider Family Medicine; Visit Provider Internal Medicine Gastroenterology
PROC: 0DJD8ZZ Inspection of Lower Intestinal Tract, Via Natural or Artificial Opening Endoscopic (ICD-10-PCS; CPT 45378; principal; 2024-11-21 10:00)
DX: Z12.11 Encounter for screening for malignant neoplasm of colon (principal); B20 Human immunodeficiency virus [HIV] disease; K57.30 Diverticulosis of large intestine without perforation or abscess without bleeding; Z86.0100 Personal history of colon polyps, unspecified; I10 Essential (primary) hypertension; E78.5 Hyperlipidemia, unspecified; I35.2 Nonrheumatic aortic (valve) stenosis with insufficiency; Z87.891 Personal history of nicotine dependence; Z79.4 Long term (current) use of insulin; D12.0 Benign neoplasm of cecum; D12.4 Benign neoplasm of descending colon
CPT/HCPCS: 45380; 82962; J2704

== ENCOUNTER → 2025-02-06 13:11 | Outpatient (CLI) | payer OTHER, SELFPAY ==
[2025-02-06 14:11] LABS: Hemoglobin A1C% w Est Avg Glu 4.6 % (4.0-6.0)
[2025-02-06 14:22] LABS: Alanine Aminotransferase 17 IU/L (<50); Albumin 4.3 g/dL (3.5-5.0); Albumin Globulin Ratio 1.6 (1.0-2.8); Alkaline Phosphatase 60 U/L (38-126); Blood Urea Nitrogen 11 mg/dL (9-20); Calcium 9.4 mg/dL (8.4-10.2); Carbon Dioxide 26 mmol/L (22-32); Chloride 105 mmol/L (98-107); Estimated Glomerular Filt Rate > 60 mL/min (>60); Globulin 2.7 g/dL (1.7-4.1); Glucose 118 mg/dL (70-99); HEMOLYSIS < 15 (0-50); Potassium 3.9 mmol/L (3.4-5.1); Sodium 139 mmol/L (137-145); Total Protein 7.0 g/dL (6.3-8.2)
[2025-02-06 14:53] LABS: TSH w/ Reflex to FT4 1.45 uIU/mL (0.47-4.68)
== END ==
PROVIDERS: PCP Family Medicine; Referring Provider Family Medicine; Visit Provider Family Medicine
DX: E11.9 Type 2 diabetes mellitus without complications (principal); I10 Essential (primary) hypertension; E78.2 Mixed hyperlipidemia; Z21 Asymptomatic human immunodeficiency virus [HIV] infection status
CPT/HCPCS: 36415; 80053; 83036; 84443

== ENCOUNTER → 2025-03-15 09:02 | Outpatient (CLI) | payer OTHER, SELFPAY ==
--- NOTE | 2025-03-15 09:03 | DI.CT.S_ITS ---
PROCEDURE: CT LUNG LOW DOSE SCREENING INDICATIONS: smoking hx TECHNIQUE: Noncontrast 2.0-2.5 mm thick sections acquired from the pulmonary apices to the posterior costophrenic angles. 7 mm thick axial MIP, and 5 mm coronal and sagittal reformats were then acquired. For radiation dose reduction, the following was used: automated exposure control, adjustment of mA and/or kV according to patient size. COMPARISON: [facility], CT, CT LUNG LOW DOSE SCREENING, 12/09/2023, 8:00. FINDINGS: Image quality: Diagnostic. Lower Neck: No enlarged lymph nodes. Thyroid: No thyroid nodules which require sonographic follow up, per consensus guidelines. Axillae: No enlarged lymph nodes. Chest Wall: Unremarkable. Bones: Unremarkable. Lungs and Pleura: No pneumothorax or pleural effusions. Mild centrilobular and paraseptal emphysema. Calcified granuloma in the right lower lobe. Heart: Heart size is normal. No pericardial effusion. Three-vessel coronary calcifications. Aortic valve calcifications. Thoracic Vessels: The aorta and pulmonary arteries demonstrate normal size. Mediastinum and [place]: No enlarged lymph nodes. Esophagus: No wall thickening. No hiatal hernia. Upper Abdomen: Visualized upper abdomen solid organs and bowel loops appear normal. IMPRESSION: No suspicious pulmonary nodules. LUNG-RADS 1; continued annual screening, if eligible. Clinically Significant Non-pulmonary Findings: Marked coronary artery calcifications for age. Correlate with risk factors and advise counseling. Dictated by: Greg Galeana M.D. on 03/15/2025 at 10:25 Approved by: Greg Galeana M.D. on 03/15/2025 at 10:30
== END ==
LOC: CT 09:02
PROVIDERS: PCP Family Medicine; Referring Provider Family Medicine; Visit Provider Family Medicine
DX: Z12.2 Encounter for screening for malignant neoplasm of respiratory organs (principal); I25.10 Atherosclerotic heart disease of native coronary artery without angina pectoris; J43.2 Centrilobular emphysema; Z87.891 Personal history of nicotine dependence
CPT/HCPCS: 71271

== ENCOUNTER → 2025-05-09 07:44 | Outpatient (CLI) | payer OTHER, SELFPAY ==
--- NOTE | 2025-05-09 07:46 | DI.RAD.S_ITS ---
PROCEDURE: XR SHOULDER RT MIN 2V INDICATIONS: right shoulder pain TECHNIQUE: 3 views of the shoulder were acquired. COMPARISON: None. FINDINGS: Bones: No fractures or dislocations. No suspicious bony lesions. Visualized ribs appear intact. There is moderate to severe acromioclavicular joint osteoarthrosis. Mild glenohumeral osteoarthrosis. Soft tissues: No suspicious soft tissue calcifications. IMPRESSION: No acute bony abnormality. Moderate to severe acromioclavicular and mild glenohumeral osteoarthrosis. Approved by: Sumi Flynn M.D.,Ph.D. on 05/10/2025 at 0:48
[2025-05-09 08:42] LABS: Hemoglobin A1C% w Est Avg Glu 4.4 % (4.0-6.0)
[2025-05-09 09:11] LABS: TSH w/ Reflex to FT4 1.95 uIU/mL (0.47-4.68)
== END ==
PROVIDERS: PCP Family Medicine; Referring Provider Family Medicine; Visit Provider Family Medicine
DX: M19.011 Primary osteoarthritis, right shoulder (principal); M25.511 Pain in right shoulder; E11.42 Type 2 diabetes mellitus with diabetic polyneuropathy; G62.9 Polyneuropathy, unspecified; I10 Essential (primary) hypertension; E78.2 Mixed hyperlipidemia; J45.40 Moderate persistent asthma, uncomplicated
CPT/HCPCS: 36415; 73030; 83036; 84443